=== PATIENT | female | born 1990 | race Caucasian/White ===

== ENCOUNTER 2019-03-20 10:23 | Day surgery (SDC) | payer SELFPAY ==
[~2019-03-20] VITALS: Ht 170.2 cm; Wt 106.0 kg
[~2019-03-20 10:23] MED LIST: PERCOCET 325 MG1 TA2 PO
[2019-03-20] MEDS ORDERED: PRIL40 PO (11:30)
[2019-03-20 12:55] VITALS: BP 108/68; PULSE 64; TEMP 97.8
--- NOTE | 2019-03-20 12:55 | NUR ---
Patient arrives back to [facility] drowsy, but alert. Patient ambulates from cart to chair with standby assist and without any complications. Patient monitor applied, vitals stable. Patient's mother at bedside. Patient denies pain or nausea.
--- NOTE | 2019-03-20 13:05 | NUR ---
Patient given juice and muffin at this time.
[2019-03-20 13:10] VITALS: BP 110/74; PULSE 64
--- NOTE | 2019-03-20 13:20 | NUR ---
Patient tolerates juice and muffin without any nausea. Denies pain. Vitals stable. Patient reports she feels good and is ready to go home.
[2019-03-20 13:25] VITALS: BP 104/76; PULSE 71
--- NOTE | 2019-03-20 13:35 | NUR ---
Dismissal instructions gone over with patient and patient's mother. Both verbalize understanding and all questions answered.
--- NOTE | 2019-03-20 13:45 | NUR ---
Patient dismissed to patient enterance via wheelchair to private vehicle her mother is driving. Patient and mother leave thanking staff for services.
[2019-03-20 15:03] VITALS: BP 119/80; PULSE 73; TEMP 98.3
== END 2019-03-20 13:45 | disposition home or self-care (01) ==
LOC: SDCO 10:23
DX: K21.0 Gastro-esophageal reflux disease with esophagitis (principal); K44.9 Diaphragmatic hernia without obstruction or gangrene; Z88.6 Allergy status to analgesic agent; K92.0 Hematemesis; E66.9 Obesity, unspecified; Z68.36 Body mass index [BMI] 36.0-36.9, adult
CPT/HCPCS: J2250; J2405; J3010; J7030